=== PATIENT | male | born 1990 | race Caucasian/White ===

== ENCOUNTER 2020-05-27 07:19 | Emergency (ER) | payer OTHER ==
[2020-05-27 08:06] LABS: HEMOGLOBIN 14.2 gm/dl (14.0-17.5); WHITE BLOOD COUNT 6.7 K/UL (4.5-11.0)
[2020-05-27 08:20] LABS: BUN/CREATININE RATIO 13 (0-10)
[2020-05-27] MEDS ORDERED: ZOFRAN4 MG PO (09:16)
== END 2020-05-27 09:28 | disposition home or self-care (01) ==
LOC: ER1 07:19
PROVIDERS: Preventive Medicine Occupational Medicine
DX: N23 Unspecified renal colic (principal); N13.30 Unspecified hydronephrosis; Z87.442 Personal history of urinary calculi
CPT/HCPCS: 80048; 81001; 85025; 85652; 86140; 87086; 96374; 96375; 99284; J1170; J2405; J7030